=== PATIENT | female | born 1950 | race Caucasian/White ===

== ENCOUNTER 2017-01-26 12:24 | Outpatient (CLI) | payer OTHER ==
[2016-07-30 05:52] VITALS: BMI 50.3
--- NOTE | 2017-01-26 13:48 | CT ---
EXAM: CT chest without contrast. HISTORY: Pulmonary nodule. Hypertension. COMPARISON: 12/20/2015. TECHNIQUE: Multiple axial images of the chest were obtained without intravenous contrast. Images w ere reformatted in the sagittal and coronal planes. FINDINGS: Evaluation for lymphadenopathy is limited due to lack of intravenous contrast per heart s ize is normal. Atherosclerotic calcifications are present, greatest in the coronary arteries. Asce nding thoracic aorta measures approximately 4.4 cm maximum diameter, although evaluation is limited by lack of intravenous contrast and motion. Subpleural nodule right upper lobe measures 0.5 cm on axial image 26. Right lower lobe nodule on ax ial image 25 measures 0.3 cm. These nodules are stable. No new nodules, consolidation, pleural eff usion or pneumothorax identified. No acute abnormality identified in the upper abdomen. Probable sludge in the gallbladder. Degenera tive changes present in the spine. IMPRESSION: 1. Stable right lung nodules which probably do not require follow-up. 2. Ascending thoracic aortic aneurysm measuring 4.4 cm.
== END 2017-01-26 12:25 | disposition home or self-care (01) ==
LOC: RAD 12:24
PROVIDERS: ATTEND Emergency Medicine
DX: R91.1 Solitary pulmonary nodule (principal); E11.9 Type 2 diabetes mellitus without complications; I10 Essential (primary) hypertension

== ENCOUNTER 2017-02-13 06:28 | Outpatient (CLI) ==
[2016-07-30 05:52] VITALS: BMI 50.3
--- NOTE | 2017-02-15 12:25 | ECHO2D ---
Date of Exam: 02/13/17 Ordering Physician: NETO MONTES Reason for Echo: HYPERTENSION, AORTIC ANEURYSM M-Mode Normal Adult Results LV Dimensions Normal Adult Results AoV Opening excursions >1.6 >1.6 LVEDD-base- 3.5-5.8 4.5 Ao root dimensions 2.0-3.7 3.6 LVESD-base- 3.1-4.6 L. Atrium dimensions 1.9-3.8 4.2 Post. Wall thickness 0.8-1.1 1.2 IV septum (thickness) 0.7-1.2 1.4 Post. Wall excursion 0.72-1.3 NORMAL Septal motion NORMAL Systolic motion R. Ventricular cavity 1.5-2.0 NORMAL LVEF 60% 62% Paradoxical septal wall motion NORMAL 2-D : ENLARGED LEFT ATRIAL CAVITY SIZE- NORMAL LEFT VENTRICULAR CONTRACTILITY-- NORMAL VALVES, NO EFFUSION, NO THROMBUS, NORMAL VALVES M-MODE: MV: NORMAL AV: NORMAL TV: NORMAL PV: CHAMBER SIZE: ENLARGED LEFT ATRIAL CAVITY WALL MOTION: NORMAL PERICARDIUM: NORMAL INTERPRETATION: 1. LEFT VENTRICULAR HYPERTROPHY WITH ENLARGED LEFT ATRIAL CAVITY 2. NORMAL LEFT VENTRICULAR CONTRACTILITY 3. NORMAL VALVES MTDD
== END 2017-02-13 06:29 | disposition home or self-care (01) ==
LOC: CAR 06:28
PROVIDERS: ATTEND Internal Medicine
DX: I10 Essential (primary) hypertension (principal); I71.9 Aortic aneurysm of unspecified site, without rupture; R06.02 Shortness of breath

== ENCOUNTER 2018-05-13 08:31 | Outpatient (CLI) | payer OTHER ==
[2016-07-30 05:52] VITALS: BMI 50.3
--- NOTE | 2018-05-13 09:35 | CT ---
EXAM: CT of the chest with contrast History: Follow up thoracic aortic aneurysm. Comparison: Chest CT 01/26/2017 Technique: Multiplanar CT images through the thorax were obtained following administration of IV con trast Findings: No change in the 4.4 cm ascending thoracic aortic aneurysm. Heart is mildly enlarged. Cor onary calcifications. No pericardial effusion. No pathologically enlarged thoracic lymph nodes. No consolidation. No pleural fluid and no pneumothorax. A few stable benign sub-centimeter right lung nodules. No developing lung nodules. Within the visualized upper abdomen, no acute findings. No acute osseous abnormalities. Impression: 1. No change in the 4.4 cm ascending aortic aneurysm. 2. No acute intrathoracic process. 3. Mild cardiomegaly and coronary artery disease
== END 2018-05-13 08:32 | disposition home or self-care (01) ==
LOC: RAD 08:31
PROVIDERS: ATTEND Internal Medicine
DX: I71.2 Thoracic aortic aneurysm, without rupture (principal)

== ENCOUNTER 2019-02-13 13:00 | Outpatient (RCR) ==
[2016-07-30 05:52] VITALS: BMI 50.3
--- NOTE | 2019-01-20 16:15 | RS.OPPTEV2 ---
Date of Note: 01/17/19 Visit #: 1 Number of visits approved by Insurance: NA Payer Source: MEDICARE Treatment Diagnosis: Bilateral knee pain, bilateral knee Osteoarthritis, gait abnormality History of Condition/Mechanism of Injury:: Mrs. Navarrete reports progress knee pain and difficulty walking. She has had a history of falls and has become less active due to fear of falling and knee pain. Prior Level of Function.....Patient was independent with: ADL's, Self Care, Caregiving, Ambulation/Mobility, Community Integration/Access Functional Limitations: Standing, Squatting, Ambulation, Community Access/ Integration Current Subjective/complaints:: Patient reports bilateral knee pain. States the right knee hurts more than the left. She ambulates with a standard walker in her home and only short distances outside her home. She uses a wheelchair if out in the community or in a large store or facility. She uses a scooter when she can at places like [employer]. States Dr. Muro has discussed knee surgery with her, but she has Type 2 Diabetes and HTN, and he wants to get those issues more under control before they consider surgery. She denies hip pain. States pain is in her knees. She will not walk without the walker because she is afraid her knees will give out. She has not fallen in the last few months. They have a ramp to the front entrance of the home. She has a walk-in tub with a slight step, which she is able to manage. She received injections in both knees approximately a month ago, which did not help much. Treatment Side (optional): Bilateral Medical History Medical History: Hypertension, Diabetes (Type 2) Surgical History: (X2) Hx Home Medications: verapamil, metformin, lovastatin, glipizide Patient's Goals: Her goal is to gain strength in her legs and she would like to avoid knee surgery. Pain Assessment - Pain Description Pain Location: Bilateral knee joints, right worse than left Current Pain Intensity: 8/10 Worst Pain Intensity: not quantified Functional Outcome Measure LE Functional Scale: 14 (=82.5% impairment) Tinetti: 15 () - G Codes & Severity Modifier G Codes & Modifier: NA Source of G Code score: NA Observation - Observation Inspection: Patient presents to therapy department via WC. Entire left LE presents be much larger than the right. Girth Measurement Lower: Inferior patella: right 42.5 cm, left 47.5 cm Gait - Gait Pattern Gait Comments: Patient ambulates in treatment room from walker to treatment table with standard walker ~12 feet. She demonstrates decreased stance on the right LE, bilateral decreased hip and knee flexion and bilateraly decreased heelstrike and toe off. Patient transfers independently sit to stand, but has daughter hold walker down so she can pull herself up with the walker. - Left Knee ROM Left Knee Extension: -20 degrees from full extension Left Knee Flexion: 70 (degrees AROM) Knee ROM Limitations: Soft Tissue Tightness, Pain - Right Knee ROM Right Knee Extension: -10 degrees from full extension Right Knee Flexion: 55 (degrees AROM) Knee ROM Limitations: Soft Tissue Tightness, Pain - Left Knee Strength Left Knee Extension: 4 Good Left Knee Flexion: 4 Good Comments: Left hip strength hip flexion and abduction 4-/5, all else 4/5. - Right Knee Strength Right Knee Extension: 4- Good- Right Knee Flexion: 4 Good Comments: Right hip strength hip flexion and abduction 3+, all else 4/5. Palpation Comments:: Patient reports tenderness with palpation along medial joint line of right knee joint. Tenderness reports over left anterior knee joint. Sensation - Sensation Right Lower Extremity: Intact/Normal Left Lower Extremity: Intact/Normal Interventions - Exercise/Activities/Manual Therapy Exercises/Activities: Patient instructed in HEP of seated LAQ's and hip flexion. Discussed safety with transfers. Demonstrated to patient and her daughter that she (patient) needs to use her arms to push from the bed or chair and not pull herself up using the walker. She was able to return demo. following discussion. Total minutes of Exercise: X 14 mins Manual Therapy: NA HOME EXERCISE PROGRAM: seated LAQ's and hip flexion. - Charges Timed Code Treatment Minutes: 14 mins Total Treatment Time: 55 mins Procedures billed for this date of service:: EVAL Medium, ADL EVALUATION COMPLEXITY LEVEL EVALUATION COMPLEXITY LEVEL: HISTORY: Medium (HTN, Diabetes, Obesity, Bilateral knee OA, history of falls), EXAM OF BODY SYSTEMS: Medium (MS, ROM, gait, transfers), CLINICAL PRESENTATION: Medium, CLINICAL DECISION MAKING: Medium Assessment Assessment: Mrs. Navarrete presents to therapy with a diagnosis of bilateral knee Osteoarthritis and quadriceps weakness. She demonstrates limited knee AROM bilateral as well as muscle weakness at the knees and hips. She reports becoming more and more limited with mobility due to knee pain and fear of falling. She presents to be at a high risk for falls per Tinetti Assessment. She demonstrates potential to benefit from ROM and strengthening exercises to improve her functional level and safety with mobility. Patient Education: Education of diagnosis, Body/Joint mechanics, Home Exercise Program, Home Safety, Education of Plan of Care Rehab Potential: Good Short Term Goals Goal #1: Patient independent and compliant with HEP. Goal to be met by: 02/03/19 Goal #2: Left knee AROM -10 degrees to 90 degrees flexion. Goal to be met by: 02/01/19 Goal #3: Right knee AROM -5 degrees to 80 degrees flexion. Goal to be met by: 02/03/19 Goal #4: Right quad strength 4/5. Goal to be met by: 02/03/19 Financial Legal Assistant Goals Goal #1: Pt knows HEP and to continue ex's to maintain level of function at D/C. Goal to be met by: 02/24/19 Goal #2: Score on LE functional scale improved to 34/80. Goal to be met by: 02/24/19 Goal #3: Pt to perform independent transfers with good safety, independently. Goal to be met by: 02/24/19 Goal #4: Pt to amb. community distances with walker independently with good safety. Goal to be met by: 02/24/19 Plan - Treatment to be Provided Procedures: Therapeutic Exercises, Therapeutic Activity, Gait Training, Neuromuscular Rehab, Patient Education Modalities: Hot Packs - Treatment Plan Frequency: 2-3 X week Duration: 4 weeks Dates of Financial Legal Assistant Goals: 02/24/19 Expiration date of current Insurance Approval:: NA - Treatment Code (1) Knee pain Code(s): M25.569 - PAIN IN UNSPECIFIED KNEE Qualifiers: Chronicity: chronic Laterality: bilateral Qualified Code(s): M25.561 - Pain in right knee; M25.562 - Pain in left knee; G89.29 - Other chronic pain (2) Knee osteoarthritis Code(s): M17.9 - OSTEOARTHRITIS OF KNEE, UNSPECIFIED Qualifiers: Osteoarthritis type: unspecified Laterality: bilateral Qualified Code(s) : M17.0 - Bilateral primary osteoarthritis of knee (3) Gait abnormality Code(s): R26.9 - UNSPECIFIED ABNORMALITIES OF GAIT AND MOBILITY Comments: R26.9 (4) Risk for falls Code(s): Z91.81 - HISTORY OF FALLING Comments: Z91.81 At high risk for falls and history of falls.
--- NOTE | 2019-01-22 16:02 | RS.OPPTDN ---
Subjective Date of Note: 01/21/19 Visit #: 2 Number of visits approved by Insurance: na Payer Source: MEDICARE Treatment Diagnosis: Bilateral knee pain, bilateral knee Osteoarthritis, gait abnormality Current Subjective/complaints:: Patient reports she doesn't feel well today and not sure how much exercise she can tolerate. Pain Assessment - Pain Description Pain Location: Bilateral knee joints Pain Description: Aching Current Pain Intensity: mod to high, does not rate on 0-10 scale Interventions - Exercise/Activities/Manual Therapy Exercises/Activities: Patient assisted to supine with HOB elevated for quad sets , ham sets, isometric hip add, isometric ankle inversion with hip IR. Assisted alt hip flexion. Assisted SLR and hip abd, patient has difficulty and takes frequent breaks. Yellow theraband for resistive ankle df and ham curl. Alt hip flexion and LAQ. Instructed patient to use bilateral UE's to push up from chair to stand and avoid pulling on walker. Total minutes of Exercise: 40mins Manual Therapy: NA HOME EXERCISE PROGRAM: seated LAQ's and hip flexion. - Charges Timed Code Treatment Minutes: 40mins Total Treatment Time: 42mins Procedures billed for this date of service:: EX3 Assessment: Patient with low tolerance to exercise due to weakness and fatigue. Patient Education: Home Exercise Program, Home Safety, Activity Modification Comments: Discussion of safety in home, need to work on HEP several times per day, and to progress walking program. Patient demonstrates compliance with HEP?: Yes Short Term Goals Goal #1: Patient independent and compliant with HEP. Goal to be met by: 02/03/19 Progress towards Goal:: Progressing Goal #2: Left knee AROM -10 degrees to 90 degrees flexion. Goal to be met by: 02/01/19 Goal #3: Right knee AROM -5 degrees to 80 degrees flexion. Goal to be met by: 02/03/19 Goal #4: Right quad strength 4/5. Goal to be met by: 02/03/19 Bolt Cutter Goals Goal #1: Pt knows HEP and to continue ex's to maintain level of function at D/C. Goal to be met by: 02/24/19 Goal #2: Score on LE functional scale improved to 34/80. Goal to be met by: 02/24/19 Goal #3: Pt to perform independent transfers with good safety, independently. Goal to be met by: 02/24/19 Goal #4: Pt to amb. community distances with walker independently with good safety. Goal to be met by: 02/24/19 Plan Dates of Bolt Cutter Goals: 02/24/19 Expiration date of current Insurance Approval:: 02/24/19 PLAN: Progress exercise as tolerated.
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
--- NOTE | 2019-01-28 15:40 | RS.OPPTDN ---
Subjective Date of Note: 01/28/19 Visit #: 3 Number of visits approved by Insurance: na Payer Source: MEDICARE Treatment Diagnosis: Bilateral knee pain, bilateral knee Osteoarthritis, gait abnormality Current Subjective/complaints:: Patient c/o back pain limiting her time to exercise on mat table (with head elevated). She stops frequently to take breaks with sitting and standing exercises as well. Pain Assessment - Pain Description Pain Location: bilateral knee pain, R > L Pain Description: Aching Current Pain Intensity: mod to high Interventions - Exercise/Activities/Manual Therapy Exercises/Activities: Patient assisted to supine with HOB elevated for quad sets , ham sets, isometric hip add, isometric ankle inversion with hip IR. Added 1 1 /2# to ankles for assisted alt hip flexion. Added 1# to SLR and assisted hip abd. SAQ with 1 1/2# 10reps each and then 2 1/2# for 10 additional reps. In sitting, yellow theraband for resistive ham curl 2s/10reps. Alt hip flexion and LAQ with 1 1/2#, 10reps each. Attempted standing exercise at rail of toe-ups, mini-squats, and march. Reviewed use bilateral UE's to push up from chair to stand. Patient education of need to increase strengthening exercises in preparation for possible surgery. Total minutes of Exercise: 39mins Manual Therapy: NA HOME EXERCISE PROGRAM: seated LAQ's and hip flexion. - Charges Timed Code Treatment Minutes: 39mins Total Treatment Time: 42mins Procedures billed for this date of service:: EX3 Assessment: Patient needs to be consistent with HEP. Paitnet is very weak and has poor tolerance to exercise. Patient Education: Body/Joint mechanics, Home Exercise Program, Activity Modification Patient demonstrates compliance with HEP?: Yes Short Term Goals Goal #1: Patient independent and compliant with HEP. Goal to be met by: 02/03/19 Progress towards Goal:: Progressing Goal #2: Left knee AROM -10 degrees to 90 degrees flexion. Goal to be met by: 02/01/19 Goal #3: Right knee AROM -5 degrees to 80 degrees flexion. Goal to be met by: 02/03/19 Goal #4: Right quad strength 4/5. Goal to be met by: 02/03/19 Group Home Goals Goal #1: Pt knows HEP and to continue ex's to maintain level of function at D/C. Goal to be met by: 02/24/19 Goal #2: Score on LE functional scale improved to 34/80. Goal to be met by: 02/24/19 Goal #3: Pt to perform independent transfers with good safety, independently. Goal to be met by: 02/24/19 Goal #4: Pt to amb. community distances with walker independently with good safety. Goal to be met by: 02/24/19 Plan Dates of Senior Gl Accountant Goals: 02/24/19 Expiration date of current Insurance Approval:: 02/24/19 PLAN: Progress strengthening exercise and HEP to increase patient functional activity level.
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
--- NOTE | 2019-02-13 11:45 | RS.OPPTDN ---
Subjective Date of Note: 01/31/19 Visit #: 4 Number of visits approved by Insurance: NA Payer Source: MEDICARE Treatment Diagnosis: Bilateral knee pain, bilateral knee Osteoarthritis, gait abnormality Current Subjective/complaints:: Patient states her knees hurt quite a bit after her last therapy session. States she would like to avoid the standing exercises today. States right knee hurts with exercises today. Interventions - Exercise/Activities/Manual Therapy Exercises/Activities: Patient assisted to supine with HOB elevated for exercises. She performed AAROM into knee flexion and received stretching to heel cords , bilaterally. Reports pain with ROM. Performed quad sets, ham sets, AROM hip abd/adduction. 1 1/2# to ankles for assisted alt hip flexion.SAQ with 1 1/2# 2 sets of 8 reps. In sitting, red theraband for resistive ham curl 2s/ 10reps. Alt hip flexion and LAQ with 1 1/2#, 10reps each. Total minutes of Exercise: 42 mins Manual Therapy: NA HOME EXERCISE PROGRAM: seated LAQ's and hip flexion. - Charges Timed Code Treatment Minutes: 42 mins Total Treatment Time: 42 mins Procedures billed for this date of service:: EX3 Assessment: Patient with low tolerance for exercises. Asked not to perform standing exercises today due to it bothering her after last session. Short Term Goals Goal #1: Patient independent and compliant with HEP. Goal to be met by: 02/03/19 Progress towards Goal:: Progressing Goal #2: Left knee AROM -10 degrees to 90 degrees flexion. Goal to be met by: 02/01/19 Goal #3: Right knee AROM -5 degrees to 80 degrees flexion. Goal to be met by: 02/03/19 Goal #4: Right quad strength 4/5. Goal to be met by: 02/03/19 Detention Goals Goal #1: Pt knows HEP and to continue ex's to maintain level of function at D/C. Goal to be met by: 02/24/19 Goal #2: Score on LE functional scale improved to 34/80. Goal to be met by: 02/24/19 Goal #3: Pt to perform independent transfers with good safety, independently. Goal to be met by: 02/24/19 Goal #4: Pt to amb. community distances with walker independently with good safety. Goal to be met by: 02/24/19 Plan Dates of Detention Goals: 02/24/19 Expiration date of current Insurance Approval:: NA PLAN: Progress ROM and strengthenig exercises as tolerated.
--- NOTE | 2019-02-13 14:51 | RS.OPPTDN ---
Subjective Date of Note: 02/13/19 Visit #: 6 Number of visits approved by Insurance: na Payer Source: MEDICARE Treatment Diagnosis: Bilateral knee pain, bilateral knee Osteoarthritis, gait abnormality Current Subjective/complaints:: Patient c/o pain in both knees with R > L. States she is doing HEP and reports she is walking a little better since starting therapy. Pain Assessment - Pain Description Pain Location: bilateral knee joints, R > L Pain Description: Sharp, Aching Current Pain Intensity: moderate Interventions - Exercise/Activities/Manual Therapy Exercises/Activities: In sitting ABS, AP, LAQ, alt hip flexion, and isometric hip add with ball. Isometric ankle inversion with ball between feet and isometric hip extension with ball under knee. Patient assisted to supine with HOB elevated for exercises. She performed quad sets, ham sets, AROM hip abd/ adduction, and short SLR. SAQ no weights today. Standing exercise of mini-squats , toe-ups, and marching with frequent rest breaks. Sit to/from stand 5reps. Amb in department with standard walker 30' x2 with cues to increase stride length and height, and to correct forward posture. Total minutes of Exercise: EX 37mins, GT 4mins Manual Therapy: NA HOME EXERCISE PROGRAM: seated LAQ's and hip flexion, isometric hip add, isometric ankle inversion, isometric hip ext, all with ball. Standing mini- squats, marching, and toe-ups. - Charges Timed Code Treatment Minutes: 41mins Total Treatment Time: 41mins Procedures billed for this date of service:: EX3 Assessment: Patient is not demonstrating a significant change in ability to perform exercises, but states she is working on them and is seeing improvement in ambulation in her home. May continue through next week to allow time for progress with functional activity level. Patient Education: Home Exercise Program, Home Safety, Activity Modification Patient demonstrates compliance with HEP?: Yes Short Term Goals Goal #1: Patient independent and compliant with HEP. Goal to be met by: 02/03/19 Progress towards Goal:: Progressing Goal #2: Left knee AROM -10 degrees to 90 degrees flexion. Goal to be met by: 02/01/19 Progress towards Goal:: Progressing Comments:: Demos full ext in long sitting on mat table. Goal #3: Right knee AROM -5 degrees to 80 degrees flexion. Goal to be met by: 02/03/19 Progress towards Goal:: Progressing Comments:: Demos full ext with long sitting on mat table. Goal #4: Right quad strength 4/5. Goal to be met by: 02/03/19 Residential Goals Goal #1: Pt knows HEP and to continue ex's to maintain level of function at D/C. Goal to be met by: 02/24/19 Goal #2: Score on LE functional scale improved to 34/80. Goal to be met by: 02/24/19 Goal #3: Pt to perform independent transfers with good safety, independently. Goal to be met by: 02/24/19 Goal #4: Pt to amb. community distances with walker independently with good safety. Goal to be met by: 02/24/19 Plan Dates of Quality Audit Representative Goals: 02/24/19 Expiration date of current Insurance Approval:: 02/24/19 PLAN: Continue next week in attempt to further progress patients functional activity level.
== END 2019-02-14 23:59 ==
PROVIDERS: ATTEND Orthopaedic Surgery
DX: M17.0 Bilateral primary osteoarthritis of knee (principal); M62.81 Muscle weakness (generalized)